=== PATIENT | male | born 1990 | race Caucasian/White ===

== ENCOUNTER 2016-12-13 12:54 | Emergency (ER) | payer MEDICAID ==
[~2016-12-13] VITALS: Ht 162.6 cm; Wt 82.0 kg
[2016-12-13 12:56] VITALS: BP 117/88
[2016-12-13] MEDS ORDERED: LIDOCAINE HCL 1% 20ML VIAL (Pyxis) INJ INFIL ONE (17:30)
[2016-12-13] MEDS ORDERED: TETANUS, DIPHTHERIA, PERTUSSIS VAC/PF 0.5ML (>7YR OLD) IM ONE (17:45)
== END 2016-12-13 18:44 | disposition home or self-care (01) ==
LOC: ER 15:45
DX: S61.214A Laceration without foreign body of right ring finger without damage to nail, initial encounter (principal); X78.0XXA Intentional self-harm by sharp glass, initial encounter; Y93.89 Activity, other specified; Y92.89 Other specified places as the place of occurrence of the external cause; Y99.8 Other external cause status
CPT/HCPCS: 12002; 90471; 90715; 99283; J3490; X7700; Z7610

== ENCOUNTER 2019-03-03 02:17 | Emergency (ER) | payer MEDICAID ==
[~2019-03-03] VITALS: Ht 162.6 cm; Wt 82.0 kg
[2019-03-03] MEDS ORDERED: DIPHENHYDRAMINE 25MG CAPSULE PO ONE (04:00)
[2019-03-03 04:02] VITALS: BP 121/79
== END 2019-03-03 04:03 | disposition home or self-care (01) ==
LOC: ER 02:17
DX: L25.9 Unspecified contact dermatitis, unspecified cause (principal); F17.200 Nicotine dependence, unspecified, uncomplicated; Z98.890 Other specified postprocedural states
CPT/HCPCS: 99282; Q0163

== ENCOUNTER 2021-03-17 13:47 | Emergency (ER) | payer MEDICAID ==
[~2021-03-17] VITALS: Ht 162.6 cm; Wt 87.0 kg
[2021-03-17] MEDS ORDERED: ACET-2708 PO (14:54)
[2021-03-17] MEDS ORDERED: ONDANSETRON 4MG ODT PO STA (16:11)
[2021-03-17] MEDS ORDERED: IBUPROFEN 600MG TABLET PO STA (16:11)
[2021-03-17 17:28] LABS: CLARITY URINE CLEAR (CLEAR); COLOR URINE DK YELLOW (YELLOW); KETONES URINE TRACE (NEGATIVE); LEUKOCYTE ESTERASE URINE NEGATIVE (NEGATIVE); NITRITE URINE NEGATIVE (NEGATIVE); OCCULT BLOOD URINE NEGATIVE (NEGATIVE); PROTEIN URINE 1+ (NEGATIVE); SPECIFIC GRAVITY URINE 1.036 (1.005-1.030)
[2021-03-17 17:59] LABS: BASOPHILS % 0.5 % (0.0-2.0); EOSINOPHILS % 0.3 % (0.0-5.0); HEMATOCRIT. 43.4 % (42.0-52.0); HEMOGLOBIN. 15.4 g/dL (14.0-18.0); LYMPHOCYTES % 14.2 % (20.0-50.0); MEAN CORPUSCULAR HEMOGLOBIN 31.8 pg (28.0-32.0); MEAN CORPUSCULAR VOLUME 89.5 fL (80.0-94.0); MEAN PLATELET VOLUME 10.4 fl (7.4-10.4); MONOCYTES % 7.6 % (2.0-8.0); NEUTROPHILS % 77.4 % (40.0-76.0); PLATELET 162 x1000/uL (130-400); RED BLOOD CELL COUNT 4.85 mill/uL (4.7-6.1); RED CELL DISTRIBUTION WIDTH 13.4 % (11.6-14.6)
[2021-03-17 18:10] LABS: CHLORIDE 103 mEq/L (98-107)
[2021-03-17 18:36] VITALS: BP 110/75
[2021-03-17] MEDS ORDERED: DOCU100T PO (18:46)
[2021-03-17] MEDS ORDERED: POLY119P2 PO (18:46)
[2021-03-17] MEDS ORDERED: NAPR-681 PO (18:46)
== END 2021-03-17 18:56 | disposition home or self-care (01) ==
LOC: ER 14:19
DX: J06.9 Acute upper respiratory infection, unspecified (principal); K59.00 Constipation, unspecified; Z20.822 Contact with and (suspected) exposure to COVID-19; Z98.890 Other specified postprocedural states
CPT/HCPCS: 36415; 71045; 80053; 81003; 83690; 85025; 87426; 99284; Q0162

== ENCOUNTER 2024-03-05 05:17 | Emergency (ER) | payer MEDICAID, OTHER ==
[~2024-03-05] VITALS: Ht 162.6 cm; Wt 82.0 kg
[~2024-03-05 05:17] MED LIST: ACET-2708 PO; DOCU100T PO; NAPR-681 PO; POLY119P2 PO
[2024-03-05 05:34] VITALS: O2SAT 98
[2024-03-05 05:38] VITALS: TEMP 98.9; O2SAT 100
[2024-03-05 06:31] VITALS: BP 123/78; PULSE 82; RESP 16
[2024-03-05] MEDS: KETOROLAC 30MG/ML VIAL IV STA (06:31)
[2024-03-05] MEDS: SODIUM CHLORIDE 0.9% 1,000 ML IV ONE (06:45)
[2024-03-05] MEDS: METOCLOPRAMIDE HCL 10MG/2ML VIAL IV ONE (06:45)
[2024-03-05 07:16] LABS: BASOPHILS % 0.3 % (0.0-2.0); EOSINOPHILS % 0.5 % (0.0-5.0); HEMATOCRIT. 37.1 % (42.0-52.0); HEMOGLOBIN. 12.5 g/dL (14.0-18.0); LYMPHOCYTES % 13.7 % (20.0-50.0); MEAN CORPUSCULAR HEMOGLOBIN 30.5 pg (28.0-32.0); MEAN CORPUSCULAR HGB CONC 33.6 g/dL (31.0-37.0); MEAN CORPUSCULAR VOLUME 90.9 fL (80.0-94.0); MEAN PLATELET VOLUME 9.8 fl (7.4-10.4); MONOCYTES % 5.6 % (2.0-8.0); NEUTROPHILS % 79.9 % (40.0-76.0); PLATELET 237 x1000/uL (130-400); RED BLOOD CELL COUNT 4.08 mill/uL (4.7-6.1); RED CELL DISTRIBUTION WIDTH 13.9 % (11.6-14.6); WHITE BLOOD COUNT 8.5 x1000/uL (4.5-11.0)
[2024-03-05 07:27] LABS: PROTHROMBIN TIME 11.6 sec (9.6-11.0)
[2024-03-05 07:32] LABS: CHLORIDE 104 mEq/L (98-107); POTASSIUM 3.8 mEq/L (3.5-5.1); SODIUM 139 mEq/L (136-145)
[2024-03-05 07:33] LABS: CALCIUM 9.3 mg/dL (8.7-10.4); CARBON DIOXIDE 30 mEq/L (21-32)
[2024-03-05 07:38] LABS: CREATININE 0.7 mg/dL (0.6-1.3); GLUCOSE 117 mg/dL (70-105); UREA NITROGEN BLOOD 10 mg/dL (9-23)
[2024-03-05] MEDS ORDERED: IBUP-2028 PO (08:21)
== END 2024-03-05 09:21 | disposition home or self-care (01) ==
LOC: ER 05:17 → CANBEDREQ 08:37 → ER 09:21
DX: R51.9 Headache, unspecified (principal); F12.10 Cannabis abuse, uncomplicated; F15.10 Other stimulant abuse, uncomplicated; Z98.890 Other specified postprocedural states; Y04.0XXA Assault by unarmed brawl or fight, initial encounter; Y93.89 Activity, other specified; Y92.89 Other specified places as the place of occurrence of the external cause; Y99.8 Other external cause status
CPT/HCPCS: 80048; 85025; 85610; 36415; 70450; 96361; 96374; 96375; 99285; J1885; J2765; J7030; Z7610 ×3

== ENCOUNTER 2024-05-30 08:34 | Emergency (ER) | payer OTHER ==
[~2024-05-30] VITALS: Ht 175.3 cm; Wt 85.0 kg
[~2024-05-30 08:34] MED LIST changes: +IBUP-2028 PO
[2024-05-30 08:35] VITALS: O2SAT 100
[2024-05-30] MEDS: LIDOCAINE HCL/PF 1% 10 MG/ML 5ML VIAL INFIL ONE (09:16)
[2024-05-30] MEDS: ACETAMINOPHEN 325MG TABLET PO ONE (09:16)
[2024-05-30] MEDS: BACITRACIN ZINC OINT UDPKT TOP ONE (09:17)
[2024-05-30 10:02] VITALS: TEMP 36.61404; O2SAT 100
[2024-05-30 10:12] VITALS: BP 122/69; PULSE 70; RESP 15
[2024-05-30] MEDS: ONDANSETRON HCL 4MG/2ML INJ IV ONE (10:12)
[2024-05-30] MEDS: MORPHINE SULFATE 4 MG/ML INJ (FOR IV/IM USE) IV ONE (10:12)
[2024-05-30] MEDS: TETANUS, DIPHTHERIA, PERTUSSIS VAC/PF 0.5ML (>10YR OLD) IM ONE (10:13)
== END 2024-05-30 10:40 | disposition short-term general hospital (02) ==
LOC: ER 08:34
DX: S31.139A Puncture wound of abdominal wall without foreign body, unspecified quadrant without penetration into peritoneal cavity, initial encounter (principal); F12.90 Cannabis use, unspecified, uncomplicated; F15.90 Other stimulant use, unspecified, uncomplicated; Z98.890 Other specified postprocedural states; Z79.899 Other long term (current) drug therapy; X58.XXXA Exposure to other specified factors, initial encounter; Y93.89 Activity, other specified; Y92.89 Other specified places as the place of occurrence of the external cause; Y99.8 Other external cause status
CPT/HCPCS: 90715; 90471; 96374; 96375; 99291; J3490; J2405; J2270; Z7610